=== PATIENT | female | born 1985 | race Caucasian/White ===

== ENCOUNTER 2018-01-20 13:01 | Emergency (ER) | payer SELFPAY ==
[2018-01-20 13:17] VITALS: RESP 18; TEMP 98.4; O2SAT 100
--- NOTE | 2018-01-20 13:44 | ED PDOC ---
Arrival/HPI - General Chief Complaint: Female Genitourinary Time Seen by Provider: 01/20/18 13:20 Historian: Patient - History of Present Illness Narrative History of Present Illness (Text): 01/20/18 13:42 32 year old female, with no significant past medical history, who presents to the emergency department complaining of vaginal bleeding with (). Patient notes experiencing spotting last night and this morning, along with little blood clots this morning. Patient states associated gassy feeling in the lower abdominal area, vaginal discharge, and frequent urination. Patient denies any fever, chills, chest pain, shortness of breath, nausea, vomiting, diarrhea, back pain, neck pain, headache, dizziness, or any other complaints. PMD: pending medicaid Time/Duration: 24 hours Symptom Onset: Gradual Symptom Course: Unchanged Activities at Onset: Light Past Medical History - Provider Review Nursing Documentation Reviewed: Yes - Infectious Disease Hx of Infectious Diseases: None - Reproductive Menopause: No - Psychiatric Hx Substance Use: No - Anesthesia Hx Anesthesia: No Family/Social History - Physician Review Nursing Documentation Reviewed: Yes Family/Social History: Unknown Family HX Smoking Status: Unknown If Ever Smoked Hx Alcohol Use: No Hx Substance Use: No Allergies/Home Meds Allergies/Adverse Reactions: Allergies No Known Allergies Allergy (Verified 01/20/18 13:17) Review of Systems - Physician Review All systems were reviewed & negative as marked: Yes - Review of Systems Constitutional: Normal Eyes: Normal ENT: Normal Respiratory: Normal. absent: SOB, Cough Cardiovascular: Normal. absent: Chest Pain Gastrointestinal: Abdominal Pain (lower abdominal discomfort) Genitourinary Female: Frequency, Vaginal Bleeding, Vaginal Discharge. absent: Dysuria, Hematuria Musculoskeletal: Normal. absent: Back Pain, Neck Pain Skin: Normal Neurological: Normal. absent: Headache, Dizziness Endocrine: Normal Hemo/Lymphatic: Normal Psychiatric: Normal Physical Exam Vital Signs Reviewed: Yes Vital Signs Temp Pulse Resp BP Pulse Ox 01/20/18 13:13 98.4 F 78 18 111/69 100 Temperature: Afebrile Blood Pressure: Normal Pulse: Regular Respiratory Rate: Normal Appearance: Positive for: Well-Appearing, Non-Toxic, Comfortable Pain Distress: None Mental Status: Positive for: Alert and Oriented X 3 - Systems Exam Head: Present: Atraumatic, Normocephalic Pupils: Present: PERRL Extroacular Muscles: Present: EOMI Conjunctiva: Present: Normal Mouth: Present: Moist Mucous Membranes Neck: Present: Normal Range of Motion Respiratory/Chest: Present: Clear to Auscultation, Good Air Exchange. No: Respiratory Distress, Accessory Muscle Use Cardiovascular: Present: Regular Rate and Rhythm, Normal S1, S2. No: Murmurs Abdomen: Present: Tenderness (lower abdominal tenderness), Normal Bowel Sounds. No: Distention, Peritoneal Signs Genitourinary/Pelvic Exam: Present: Normal External Genitalia, Vaginal Bleeding (+mild bleeding; no clots), Cervical os Closed, Other (Assembler Bicycle Tone). No: Vaginal Discharge, Vaginal Lesions, Adenexal Tenderness, Adenexal Mass, Cervical Motion Tendernes, Odor Back: Present: Normal Inspection Upper Extremity: Present: Normal Inspection. No: Cyanosis, Edema Lower Extremity: Present: Normal Inspection. No: Edema Neurological: Present: GCS=15, CN II-XII Intact, Speech Normal Skin: Present: Warm, Dry, Normal Color. No: Rashes Psychiatric: Present: Alert, Oriented x 3, Normal Insight, Normal Concentration Medical Decision Making ED Course and Treatment: 01/20/18 14:00 Impression: 32 year old female presents to the Emergency department complaining of vaginal bleeding x 2 days. Differential Diagnosis included but are not limited to: R/o ectopic vs. R/o miscarriage Plan: -- Labs -- POC Urinary Test -- US Transvaginal -- Urinalysis -- Reassess and disposition Progress Notes: 01/20/18 16:05 US Transvaginal reviewed, shows: IMPRESSION: Findings could represent either early or demise. See comment. Follow-up and correlation with beta HCG levels is recommended 01/20/18 17:41 I explained to patient in detail her results from her ultrasound. I told her to make sure she returns to the ED in 2 days fore repeat bHCG. If she experiences pain, worsening bleeding or any other concern she was advised to return to the ED. She will make sure to also make arrangements to follow up with her CAR RESTORER or Dr. Wan which I explained was one of our OBGYN director of infection control. - Scribe Statement The provider has reviewed the documentation as recorded by the Broderickiberyn Child All medical record entries made by the Scriberyn were at my direction and personally dictated by me. I have reviewed the chart and agree that the record accurately reflects my personal performance of the history, physical exam, medical decision making, and the department course for this patient. I have also personally directed, reviewed, and agree with the discharge instructions and disposition. Disposition/Present on Arrival - Present on Arrival Any Indicators Present on Arrival: No History of DVT/PE: No History of Uncontrolled Diabetes: No Urinary Catheter: No History of Decub. Ulcer: No History Surgical Site Infection Following: None - Disposition Have Diagnosis and Disposition been Completed?: Yes Diagnosis: Threatened Disposition: HOME/ ROUTINE Disposition Time: 17:00 Patient Plan: Discharge Condition: IMPROVED Discharge Instructions (ExitCare): Threatened Miscarriage Additional Instructions: NAZ PENA, thank you for letting us take care of you today. Your provider was Murray Dumont DO and you were treated for Threatened . The emergency medical care you received today was directed at your acute symptoms. If you were prescribed any medication, please fill it and take as directed. It may take several days for your symptoms to resolve. Return to the Emergency Department if your symptoms worsen, do not improve, or if you have any other problems. RETURN TO THE ED IN 2 DAYS FOR REPEAT BHCG AND REEVALUATION. FOLLOW-UP WITH OBGYN IN 1-2DAYS. Please contact your doctor or call one of the physicians/clinics you have been referred to that are listed on the Patient Visit Information form that is included in your discharge packet. Bring any paperwork you were given at discharge with you along with any medications you are taking to your follow up visit. Our treatment cannot replace ongoing medical care by a primary care provider outside of the emergency department. Thank you for allowing the [facility] team to be part of your care today. If you had an X-Ray or CT scan: A Radiologist will review the ED reading if any change in treatment is needed we will contact you. If you had a blood, urine, or wound culture: It will take several days for the results, if any change in treatment is needed we will contact you. If you had an STI test: It will take 48 hours for the results. Please call after 1 week if you have not heard back. Prescriptions: Acetaminophen [Tylenol Extra Strength] 500 mg PO Q4 #30 tablet Vit No.129/Iron/Folic [ One Daily Tablet] 1 each PO DAILY #30 tablet Referrals: Carmelo Wan MD [Staff Provider] - Follow up with primary Forms: [employer] [facility] (Bulgarian), WORK NOTE
[2018-01-20 14:19] LABS: BASO # 0.04 K/mm3 (0.0-2.0); BASO % 0.7 % (0.0-3.0); EOS # 0.1 (0.0-0.7); EOS % 1.4 % (1.5-5.0); GRAN % 67.6 % (50.0-68.0); HEMOGLOBIN 12.2 g/dL (12.0-16.0); LYMPH # 1.5 (1.2-3.4); LYMPH % 24.5 % (22.0-35.0); MEAN CORPUSCULAR HEMOGLOBIN 29.3 pg (25.0-35.0); MEAN CORPUSCULAR HGB CONC 33.2 g/dl (31.0-37.0); MEAN PLATELET VOLUME 8.6 fl (7.0-11.0); MONO # 0.3 (0.1-0.6); MONO % 5.8 % (1.0-6.0); RBC 4.17 10^6/uL (3.5-6.1); RED CELL DISTRIBUTION WIDTH 12.8 % (11.5-14.5); WHITE BLOOD COUNT 5.9 10^3/ul (4.5-11.0)
[2018-01-20 14:22] LABS: PH,URINE 6.5 (4.7-8.0); URINE BILIRUBIN NEGATIVE (NEGATIVE); URINE BLOOD LARGE (NEGATIVE); URINE GLUCOSE (UA) NEGATIVE (NEGATIVE); URINE LEUKOCYTE ESTERASE SMALL Leu/uL (NEGATIVE); URINE PROTEIN NEGATIVE mg/dL (<30 mg/dL); URINE UROBILINOGEN 0.2 E.U./dL (<1 E.U./dL)
[2018-01-20 14:23] LABS: URINE APPEARANCE SL CLOUDY (CLEAR); URINE COLOR YELLOW (YELLOW)
[2018-01-20 14:30] LABS: URINE RBC 20 - 25 /hpf (0-2)
[2018-01-20 14:31] LABS: URINE BACTERIA MANY (NEG)
[2018-01-20 14:37] LABS: INR 1.15; PROTHROMBIN TIME 13.1 SECONDS (9.4-12.5)
[2018-01-20 14:55] LABS: BLOOD UREA NITROGEN 7 mg/dL (7-21); GFR NON-AFRICAN AMERICAN > 60
[2018-01-20 14:56] LABS: ALB/GLOB RATIO 1.3 (1.1-1.8); ALBUMIN 4.3 g/dL (3.0-4.8); CALCIUM 9.5 mg/dL (8.4-10.5)
[2018-01-20 14:58] LABS: ALT/SGPT 15 U/L (7-56); AST/SGOT 16 U/L (14-36)
--- NOTE | 2018-01-20 16:03 | US ---
Date of service: 01/20/2018 PROCEDURE: OB Pelvic Ultrasound HISTORY: vag bleed in preg r/o ectopic r/o miscarriage LMP: COMPARISON: None available. FINDINGS: UTERUS: There is a gestational sac in the endometrial canal that corresponds to a age of 5 weeks 2 days. The pole corresponds to an age of 6 weeks. There is no heart activity. Findings could represent either early or demise. Follow-up and correlation with beta HCG levels is recommended Uterus measures 6.57 x 4.56 x 4.50 cm. Normal in size and appearance. CERVIX: Measures 3.19 cm. Long and closed. No cervical abnormality seen. RIGHT OVARY: Measures 2.98 x 2.38 x 2.32 cm. No mass lesion. Normal flow. LEFT OVARY: Measures 2.30 x 1.73 x 1.38 cm. No solid mass. Normal flow. FREE FLUID: None. OTHER FINDINGS: None. IMPRESSION: Findings could represent either early or demise. See comment. Follow-up and correlation with beta HCG levels is recommended
[2018-01-20 17:07] VITALS: BP 114/59; PULSE 74
== END 2018-01-20 17:41 | disposition home or self-care (01) ==
LOC: ED 13:01
DX: O20.0 Threatened abortion (principal); Z3A.00 Weeks of gestation of pregnancy not specified

== ENCOUNTER 2018-01-22 11:10 | Emergency (ER) | payer MEDICAID, OTHER ==
--- NOTE | 2018-01-22 11:16 | ED PDOC ---
Arrival/HPI - General Time Seen by Provider: 01/22/18 11:13 Historian: Patient - History of Present Illness Narrative History of Present Illness (Text): 01/22/18 11:16 32 y/o female, no pmh, nkda, LMP 11/18/2017, , seen in the ER about 2 days ago for vaginal spotting with with sonogram show early vs. demise, told to come to the ER for repeat beta hcg. Pt. stated that her vaginal spotting is slowing down, passing clots, no pelvic/abdominal/lower back pain, no fever or chills, no night sweat, no dizziness, no change in vision, no fatigue, no rash, no other medical or psychological complaints. Past Medical History - Provider Review Nursing Documentation Reviewed: Yes - Infectious Disease Hx of Infectious Diseases: None - Psychiatric Hx Substance Use: No - Anesthesia Hx Anesthesia: No Family/Social History - Physician Review Nursing Documentation Reviewed: Yes Family/Social History: Unknown Family HX Smoking Status: Unknown If Ever Smoked Hx Alcohol Use: No Hx Substance Use: No Allergies/Home Meds Allergies/Adverse Reactions: Allergies No Known Allergies Allergy (Verified 01/20/18 13:17) Review of Systems - Review of Systems Constitutional: absent: Fatigue, Fevers Eyes: absent: Vision Changes ENT: absent: Hearing Changes Respiratory: absent: SOB, Cough Cardiovascular: absent: Chest Pain Gastrointestinal: absent: Abdominal Pain, Diarrhea, Nausea, Vomiting Genitourinary Female: Vaginal Bleeding. absent: Urine Output Changes, Vaginal Discharge Musculoskeletal: absent: Arthralgias, Back Pain Skin: absent: Rash, Pruritis Neurological: absent: Headache, Dizziness Psychiatric: absent: Anxiety, Depression Physical Exam Vital Signs Reviewed: Yes Temperature: Afebrile Blood Pressure: Normal Pulse: Regular Respiratory Rate: Normal Appearance: Positive for: Well-Appearing, Non-Toxic, Comfortable Pain Distress: None Mental Status: Positive for: Alert and Oriented X 3 - Systems Exam Head: Present: Atraumatic, Normocephalic Pupils: Present: PERRL Extroacular Muscles: Present: EOMI Conjunctiva: Present: Normal Mouth: Present: Moist Mucous Membranes Neck: Present: Normal Range of Motion Respiratory/Chest: Present: Clear to Auscultation, Good Air Exchange. No: Respiratory Distress, Accessory Muscle Use Cardiovascular: Present: Regular Rate and Rhythm, Normal S1, S2. No: Murmurs Abdomen: No: Tenderness, Distention, Peritoneal Signs, Rebound, Guarding Genitourinary/Pelvic Exam: Present: Other (Pt. declined. ) Back: Present: Normal Inspection. No: CVA Tenderness, Midline Tenderness Upper Extremity: Present: Normal Inspection. No: Cyanosis, Edema Lower Extremity: Present: Normal Inspection. No: Edema Neurological: Present: GCS=15, CN II-XII Intact, Speech Normal, Motor Func Grossly Intact, Gait Normal, Memory Normal Skin: Present: Warm, Dry, Normal Color. No: Rashes Psychiatric: Present: Alert, Oriented x 3, Normal Insight, Normal Concentration Medical Decision Making ED Course and Treatment: 01/22/18 11:50 -labs -type and screen -UA -Observe and reassess 01/22/18 13:55 -Labs are nonsignificant with no elevation of wbc and stable hgb -Beta hcg 1450 from 7006 -UA show +UTI, pt. stated that she didn't receive the oral antibiotic last time -Blood type is B+ -All labs/radiology results explained to the patient, offer pelvic exam but she refused, explained to repeat betahcg in 2 days for continuous trending. -Discharge home with keflex, bed rest, stay hydrated, follow up with your own pmd and obgyn for repeat betahcg and trending in 2 days, return to the ER for any new or worsening signs or symptoms. - PA / ETL ANALYST DEVELOPER / Resident Statement / has reviewed & agrees with the documentation as recorded. Disposition/Present on Arrival - Present on Arrival Any Indicators Present on Arrival: No History of DVT/PE: No History of Uncontrolled Diabetes: No Urinary Catheter: No History of Decub. Ulcer: No History Surgical Site Infection Following: None - Disposition Have Diagnosis and Disposition been Completed?: Yes Diagnosis: , Vaginal spotting, UTI (urinary tract infection) Disposition: HOME/ ROUTINE Disposition Time: 13:57 Patient Plan: Discharge Condition: GOOD Additional Instructions: -Discharge home with keflex, bed rest, stay hydrated, follow up with your own pmd and obgyn for repeat betahcg and trending in 2 days, return to the ER for any new or worsening signs or symptoms. Prescriptions: Cephalexin [cephalexin] 500 mg PO TID #21 cap Referrals: PCP,NO [Primary Care Provider] - Follow up with primary Supriya Rich MD [Staff Provider] - Follow up with primary Forms: WORK NOTE
[2018-01-22 11:43] VITALS: TEMP 99.3; O2SAT 99
[2018-01-22 13:04] LABS: BASO # 0.06 K/mm3 (0.0-2.0); BASO % 1.1 % (0.0-3.0); EOS # 0.1 (0.0-0.7); EOS % 2.3 % (1.5-5.0); GRAN # 3.22 (1.4-6.5); GRAN % 56.6 % (50.0-68.0); HEMOGLOBIN 12.5 g/dL (12.0-16.0); LYMPH # 1.8 (1.2-3.4); LYMPH % 31.6 % (22.0-35.0); MEAN CELL VOLUME 87.6 fl (80.0-105.0); MEAN CORPUSCULAR HEMOGLOBIN 29.3 pg (25.0-35.0); MEAN CORPUSCULAR HGB CONC 33.4 g/dl (31.0-37.0); MEAN PLATELET VOLUME 8.8 fl (7.0-11.0); MONO # 0.5 (0.1-0.6); MONO % 8.4 % (1.0-6.0); RBC 4.27 10^6/uL (3.5-6.1); RED CELL DISTRIBUTION WIDTH 12.8 % (11.5-14.5); WHITE BLOOD COUNT 5.7 10^3/ul (4.5-11.0)
[2018-01-22 13:20] LABS: ALB/GLOB RATIO 1.3 (1.1-1.8); ALBUMIN 4.6 g/dL (3.0-4.8); ALT/SGPT 11 U/L (7-56); AST/SGOT 17 U/L (14-36); BLOOD UREA NITROGEN 11 mg/dL (7-21); CALCIUM 9.9 mg/dL (8.4-10.5); GFR NON-AFRICAN AMERICAN > 60
[2018-01-22 13:24] LABS: PH,URINE 6.5 (4.7-8.0); URINE BILIRUBIN NEGATIVE (NEGATIVE); URINE BLOOD LARGE (NEGATIVE); URINE COLOR LIGHT YELLOW (YELLOW); URINE GLUCOSE (UA) NEGATIVE (NEGATIVE); URINE LEUKOCYTE ESTERASE MODERATE Leu/uL (NEGATIVE); URINE PROTEIN 100 mg/dL (<30 mg/dL); URINE UROBILINOGEN 0.2 E.U./dL (<1 E.U./dL)
[2018-01-22 13:25] LABS: URINE APPEARANCE CLOUDY (CLEAR)
[2018-01-22 13:26] LABS: URINE BACTERIA MANY (NEG); URINE RBC TNTC /hpf (0-2); URINE WBC TNTC /hpf (0-6)
[2018-01-22 14:20] VITALS: BP 111/46; PULSE 77; RESP 16
== END 2018-01-22 14:19 | disposition home or self-care (01) ==
LOC: ED 11:10
DX: O23.40 Unspecified infection of urinary tract in pregnancy, unspecified trimester (principal); O26.859 Spotting complicating pregnancy, unspecified trimester; Z3A.00 Weeks of gestation of pregnancy not specified

== ENCOUNTER 2018-05-19 19:47 | Observation (INO) | payer MEDICAID ==
[2018-05-19 20:02] VITALS: BMI 21.6
[2018-05-19] MEDS ORDERED: Sodium Chloride 0.9% 1,000 ML IV STA (20:16)
[2018-05-19 20:53] LABS: URINE BILIRUBIN NEGATIVE (NEGATIVE); URINE BLOOD MODERATE (NEGATIVE); URINE GLUCOSE (UA) NEGATIVE (NEGATIVE); URINE LEUKOCYTE ESTERASE NEGATIVE Leu/uL (NEGATIVE); URINE PROTEIN NEGATIVE mg/dL (<30 mg/dL); URINE UROBILINOGEN 0.2 E.U./dL (<1 E.U./dL)
[2018-05-19 20:55] LABS: BASO # 0.03 K/mm3 (0.0-2.0); BASO % 0.3 % (0.0-3.0); EOS # 0.1 (0.0-0.7); EOS % 0.7 % (1.5-5.0); HEMOGLOBIN 11.9 g/dL (12.0-16.0); LYMPH % 22.2 % (22.0-35.0); MEAN CELL VOLUME 89.5 fl (80.0-105.0); MEAN CORPUSCULAR HEMOGLOBIN 29.1 pg (25.0-35.0); MEAN CORPUSCULAR HGB CONC 32.5 g/dl (31.0-37.0); MEAN PLATELET VOLUME 9.1 fl (7.0-11.0); MONO # 0.5 (0.1-0.6); MONO % 5.8 % (1.0-6.0); RBC 4.09 10^6/uL (3.5-6.1); RED CELL DISTRIBUTION WIDTH 12.6 % (11.5-14.5); URINE APPEARANCE SL CLOUDY (CLEAR); URINE COLOR YELLOW (YELLOW); WHITE BLOOD COUNT 8.8 10^3/uL (4.5-11.0)
[2018-05-19 20:57] LABS: INR 1.22; PARTIAL THROMBOPLASTIN TIME 29.6 Seconds (26.9-38.3); PROTHROMBIN TIME 13.5 SECONDS (9.4-12.5)
[2018-05-19 20:58] LABS: ALB/GLOB RATIO 1.3 (1.1-1.8); ALBUMIN 4.5 g/dL (3.0-4.8); ALT/SGPT 27 U/L (7-56); AST/SGOT 20 U/L (14-36); BLOOD UREA NITROGEN 10 mg/dL (7-21); CALCIUM 9.4 mg/dL (8.4-10.5); GFR NON-AFRICAN AMERICAN > 60; LIPASE 79 U/L (23-300)
[2018-05-19 21:10] LABS: URINE BACTERIA FEW /hpf
--- NOTE | 2018-05-19 22:40 | ED PDOC ---
Arrival/HPI - General Chief Complaint: Abdominal Pain Time Seen by Provider: 05/19/18 20:06 Historian: Patient - History of Present Illness Narrative History of Present Illness (Text): 05/19/18 22:57 32yo female with no pmhx who present with complaint of burning epigastric and lower abdominal pain with associated nausea and diarrhea since this morning. States pain became worse this evening. States she tried to induce vomiting, but couldn't. Denies fever, chills, melena, hematemesis, urinary symptoms, chest pain, sick contact, any other complaint. Past Medical History - Provider Review Nursing Documentation Reviewed: Yes - Infectious Disease Hx of Infectious Diseases: None - Reproductive Currently : No - Psychiatric Hx Substance Use: No - Anesthesia Hx Anesthesia: No Family/Social History - Physician Review Nursing Documentation Reviewed: Yes Family/Social History: Unknown Family HX Smoking Status: Never Smoked Hx Alcohol Use: No Hx Substance Use: No Allergies/Home Meds Allergies/Adverse Reactions: Allergies No Known Allergies Allergy (Verified 01/20/18 13:17) Home Medications: Home Meds Medication Instructions Recorded Confirmed RX: No Known Home Med 05/19/18 05/19/18 Review of Systems - Physician Review All systems were reviewed & negative as marked: Yes - Review of Systems Constitutional: Normal Eyes: Normal ENT: Normal Respiratory: Normal Cardiovascular: Normal Gastrointestinal: Abdominal Pain, Diarrhea, Nausea. absent: Constipation, Vomiting, Hematochezia, Hematemesis Genitourinary Female: Normal Musculoskeletal: Normal Skin: Normal Neurological: Normal Endocrine: Normal Hemo/Lymphatic: Normal Psychiatric: Normal Physical Exam Vital Signs Reviewed: Yes Vital Signs Temp Pulse Resp BP Pulse Ox 05/19/18 21:42 98.1 F 92 H 18 120/74 100 05/19/18 20:05 98 F 85 20 117/78 100 Temperature: Afebrile Blood Pressure: Normal Pulse: Regular Respiratory Rate: Normal Appearance: Positive for: Well-Appearing, Non-Toxic, Comfortable Pain Distress: Moderate Mental Status: Positive for: Alert and Oriented X 3 - Systems Exam Head: Present: Atraumatic, Normocephalic Pupils: Present: PERRL Extroacular Muscles: Present: EOMI Conjunctiva: Present: Normal Mouth: Present: Moist Mucous Membranes Neck: Present: Normal Range of Motion Respiratory/Chest: Present: Clear to Auscultation, Good Air Exchange. No: Respiratory Distress, Accessory Muscle Use Cardiovascular: Present: Regular Rate and Rhythm, Normal S1, S2. No: Murmurs Abdomen: Present: Tenderness (Epigastric and lower abdomen), Normal Bowel Sounds, Other (Soft). No: Distention, Peritoneal Signs, Rebound, Guarding, McBurney's Point Tender, Rovsing's Sign Present Back: Present: Normal Inspection Upper Extremity: Present: Normal Inspection. No: Cyanosis, Edema Lower Extremity: Present: Normal Inspection. No: Edema Neurological: Present: GCS=15, CN II-XII Intact, Speech Normal Skin: Present: Warm, Dry, Normal Color. No: Rashes Psychiatric: Present: Alert, Oriented x 3, Normal Insight, Normal Concentration Medical Decision Making ED Course and Treatment: 05/19/18 22:40 PT present to ED for stated history. She was in moderate pain on presentation and noted to vomit while in ED. Labs UA Abdominal/pelvic CT Toradol/Pepcid/Zofran/1L NS On re evaluation she noted that her pain improved Abdominal/Pelvic CT IMPRESSION: 1. There is an abnormal appendix in the right lower quadrant which is fluid- filled and demonstrates wall thickening and measures at least 1.2 cm in diameter and contains an appendicolith. There is minimal periappendiceal stranding. The finding is compatible with acute appendicitis. No convincing evidence for perforation or abscess. 2. There is a 3.1 cm cystic lesion of the right adnexa. This may represent simple cyst. However, if indicated, this could be further evaluated with pelvic sonogram. 3. Additional and incidental findings as described. Please see comments. 4. Result are being phoned into the referring clinicians at the time of this dictation. Electronically signed on May 19, 2018 10:39:40 PM EST by: Jeromy Porras M.D., REJI Certified By [facility] & [facility] Fellowship Trained MRI and CT Specialist 05/19/18 23:[address] finding, pt was admitted for acute appendicitis Result and plan was DW the pt and she agreed Case was DW Dr. Cool and pt was admitted Case was also DW the enrollment services vice president, Yohan Currie - Lab Interpretations Lab Results: PT 13.5 SECONDS (9.4-12.5) H 05/19/18 20:43 INR 1.22 05/19/18 20:43 APTT 29.6 Seconds (26.9-38.3) 05/19/18 20:43 Total Bilirubin 0.6 mg/dL (0.2-1.3) 05/19/18 20:43 AST 20 U/L (14-36) 05/19/18 20:43 ALT 27 U/L (7-56) 05/19/18 20:43 Alkaline Phosphatase 53 U/L (38-126) 05/19/18 20:43 Total Protein 8.0 g/dL (5.8-8.3) 05/19/18 20:43 Albumin 4.5 g/dL (3.0-4.8) 05/19/18 20:43 Globulin 3.5 gm/dL 05/19/18 20:43 Albumin/Globulin Ratio 1.3 (1.1-1.8) 05/19/18 20:43 Lipase 79 U/L (23-300) 05/19/18 20:43 Urine Color Yellow (YELLOW) 05/19/18 20:43 Urine Appearance Sl cloudy (CLEAR) 05/19/18 20:43 Urine pH 6.0 (4.7-8.0) 05/19/18 20:43 Ur Specific Howell >= 1.030 (1.005-1.035) 05/19/18 20:43 Urine Protein Negative mg/dL (<30 mg/dL) 05/19/18 20:43 Urine Glucose (UA) Negative mg/dL (NEGATIVE) 05/19/18 20:43 Urine Ketones Trace mg/dL (NEGATIVE) H 05/19/18 20:43 Urine Blood Moderate (NEGATIVE) H 05/19/18 20:43 Urine Nitrate Negative (NEGATIVE) 05/19/18 20:43 Urine Bilirubin Negative (NEGATIVE) 05/19/18 20:43 Urine Urobilinogen 0.2 E.U./dL (<1 E.U./dL) 05/19/18 20:43 Ur Leukocyte Esterase Negative Saritha/uL (NEGATIVE) 05/19/18 20:43 Urine RBC 5 - 10 /hpf (0-2) H 05/19/18 20:43 Urine WBC 5 - 10 /hpf (0-6) H 05/19/18 20:43 Ur Epithelial Cells 3 - 4 /hpf (0-5) 05/19/18 20:43 Urine Bacteria Few /hpf (NONE) 05/19/18 20:43 - RAD Interpretation Radiology Orders: 05/19/18 20:56 ABD & PELVIS W/O PO OR IV CONT [CT] Stat - Medication Orders Current Medication Orders: Discontinued Medications Famotidine (Pepcid) 20 mg IVP STAT STA Stop: 05/19/18 20:17 Last Admin: 05/19/18 21:08 Dose: 20 mg IVP Administration Document 05/19/18 21:08 DM (Rec: 05/19/18 21:09 DM [id number]) Charges for Administration # of IVP Administrations 1 Sodium Chloride (Sodium Chloride 0.9%) 1,000 mls @ 1,000 mls/hr IV .Q1H STA Stop: 05/19/18 21:15 Last Admin: 05/19/18 20:58 Dose: 1,000 mls/hr eMAR Start Stop Document 05/19/18 20:58 DM (Rec: 05/19/18 21:00 DM [id number]) Intravenous Solution Start Date 05/19/18 Start Time 20:15 End Date 05/19/18 End time 21:20 Total Infusion Time 65 Ketorolac Tromethamine (Toradol) 30 mg IVP STAT STA Stop: 05/19/18 20:58 Last Admin: 05/19/18 21:07 Dose: 30 mg MAR Pain Assessment Document 05/19/18 21:07 DM (Rec: 05/19/18 21:07 DM [id number]) Pain Reassessment Is this a pain reassessment? Yes Presence of Pain Presence of Pain Yes Pain Scale Used Protocol: PSCALES Pain Scale Used Numeric Location Pain Location Body Site Abdomen Description Intensity of Pain at present 8 IVP Administration Document 05/19/18 21:07 DM (Rec: 05/19/18 21:07 DM [id number]) Charges for Administration # of IVP Administrations 1 Ondansetron HCl (Zofran Inj) 4 mg IVP STAT STA Stop: 05/19/18 20:17 Last Admin: 05/19/18 21:05 Dose: 4 mg IVP Administration Document 05/19/18 21:05 DM (Rec: 05/19/18 21:05 DM [id number]) Charges for Administration # of IVP Administrations 1 Ondansetron HCl (Zofran Inj) 4 mg IVP STAT STA Stop: 05/19/18 21:09 Last Admin: 05/19/18 21:20 Dose: 4 mg IVP Administration Document 05/19/18 21:20 DM (Rec: 05/19/18 21:20 DM [id number]) Charges for Administration # of IVP Administrations 1 Disposition/Present on Arrival - Present on Arrival Any Indicators Present on Arrival: No History of DVT/PE: No History of Uncontrolled Diabetes: No Urinary Catheter: No History of Decub. Ulcer: No History Surgical Site Infection Following: None - Disposition Have Diagnosis and Disposition been Completed?: Yes Diagnosis: Acute appendicitis Disposition: HOSPITALIZED Disposition Time: 22:30 Patient Plan: Admission Patient Problems: Current Active Problems Problem Status Onset Acute appendicitis Acute Condition: FAIR
--- NOTE | 2018-05-20 00:17 | CP.PCM.HP ---
<José Miguel Hitchcock - Last Filed: 05/20/18 02:14> History of Present Illness - History of Present Illness History of Present Illness: Medicine History and Physical for Hospitalist Service, Dr. Bony Hitchcock, DO PGY-1 This is a 32 y o female with no remarkable PMhx who presents to the ED c/o burning epigastric and lower abd pain with associated nausea and diarrhea present since this am. States she was having gas pain, belching, and tried to induce vomiting to relieve her symptoms but was unable to. States she also had 2 episodes of loose stool, non-watery, non-bloody, earlier today prior to symptom onset. Denies hx sick contacts or recent URI/flu-like illness. States her pain was sharp, improved with changing position from sitting up to lying down, rated it 10/10 at time of presentation. States the pain started on her R side, then migrated to her epigastric area, then migrated down to the periumbilical area and mid-lower abd. Denies fever or chills. Denies constipation, diarrhea, chest pain, sob, urinary complaints, low back pain, or other symptoms. Reports last PO intake was at 7:00 pm. PMhx: none PSurgHx: none PGynHx: positive for spontaneous miscarriage at 7 weeks gestation several mos prior Allergies: NKDA Home meds: none Fam hx: negative for cardiac disease or malignancies Soc hx: denies smoking, EtOH or illicit drug use; denies hx of STDs, LMP 05/08/18 PMD: Dr. Stover ([place]) Present on Admission - Present on Admission Any Indicators Present on Admission: No History of DVT/PE: No History of Uncontrolled Diabetes: No Urinary Catheter: No Decubitus Ulcer Present: No Review of Systems - Constitutional Constitutional: absent: Chills, Fever - Cardiovascular Cardiovascular: absent: Chest Pain, Dyspnea on Exertion - Respiratory Respiratory: absent: Cough, Dyspnea, Wheezing - Gastrointestinal Gastrointestinal: Abdominal Pain, Diarrhea, Nausea. absent: Constipation, Vomiting - Genitourinary Genitourinary: absent: Change in Urinary Stream, Difficulty Urinating, Urinary Frequency Past Patient History - Infectious Disease Hx of Infectious Diseases: None - Past Social History Smoking Status: Never Smoked - PSYCHIATRIC Hx Substance Use: No - SURGICAL HISTORY Hx Surgeries: No - ANESTHESIA Hx Anesthesia: No Meds Allergies/Adverse Reactions: Allergies Allergy/AdvReac Type Severity Reaction Status Date / Time No Known Allergies Allergy Verified 01/20/18 13:17 Physical Exam - Constitutional Appears: Non-toxic, No Acute Distress - Head Exam Head Exam: ATRAUMATIC, NORMOCEPHALIC - Eye Exam Eye Exam: EOMI, Normal appearance, PERRL - ENT Exam ENT Exam: Mucous Membranes Moist - Respiratory Exam Respiratory Exam: Clear to Auscultation Bilateral, NORMAL BREATHING PATTERN. absent: Rales, Rhonchi, Wheezes - Cardiovascular Exam Cardiovascular Exam: REGULAR RHYTHM, +S1, +S2. absent: Gallop, Rubs, Systolic Murmur - GI/Abdominal Exam GI & Abdominal Exam: Guarding, Normal Bowel Sounds, Soft, Tenderness. absent: Organomegaly, Rebound Additional comments: Tenderness to palpation in RLQ and LLQ - Extremities Exam Extremities exam: Positive for: full ROM, normal capillary refill, normal inspection, pedal pulses present. Negative for: calf tenderness, pedal edema - Neurological Exam Neurological exam: Alert, CN II-XII Intact, Oriented x3 - Psychiatric Exam Psychiatric exam: Normal Affect, Normal Mood - Skin Skin Exam: Dry, Intact, Normal Color, Warm Results - Vital Signs Recent Vital Signs: Last Vital Signs Temp 98.1 F 05/19/18 21:42 Pulse 92 H 05/19/18 21:42 Resp 18 05/19/18 21:42 BP 120/74 05/19/18 21:42 Pulse Ox 100 05/19/18 21:42 - Labs Result Diagrams: 05/19/18 20:43 05/19/18 20:43 Labs: Laboratory Results - last 24 hr 05/19/18 05/19/18 05/19/18 20:43 20:43 20:43 WBC 8.8 RBC 4.09 Hgb 11.9 L Hct 36.6 MCV 89.5 MCH 29.1 MCHC 32.5 RDW 12.6 Plt Count 223 MPV 9.1 Neut % (Auto) 71.0 H Lymph % (Auto) 22.2 [place] % (Auto) 5.8 Eos % (Auto) 0.7 L Baso % (Auto) 0.3 Lymph # (Auto) 2.0 [place] # (Auto) 0.5 Eos # (Auto) 0.1 Baso # (Auto) 0.03 Absolute Neuts (auto) 6.27 PT 13.5 H INR 1.22 APTT 29.6 Sodium Potassium Chloride Carbon Dioxide Anion Gap BUN Creatinine Est GFR ( Amer) Est GFR (Non-Af Amer) Random Glucose Calcium Magnesium Total Bilirubin AST ALT Alkaline Phosphatase Total Protein Albumin Globulin Albumin/Globulin Ratio Lipase Urine Color Yellow Urine Appearance Sl cloudy Urine pH 6.0 Ur Specific [place] >= 1.030 Urine Protein Negative Urine Glucose (UA) Negative Urine Ketones Trace H Urine Blood Moderate H Urine Nitrate Negative Urine Bilirubin Negative Urine Urobilinogen 0.2 Ur Leukocyte Esterase Negative Urine RBC 5 - 10 H Urine WBC 5 - 10 H Ur Epithelial Cells 3 - 4 Urine Bacteria Few 05/19/18 20:43 WBC RBC Hgb Hct MCV MCH MCHC RDW Plt Count MPV Neut % (Auto) Lymph % (Auto) [place] % (Auto) Eos % (Auto) Baso % (Auto) Lymph # (Auto) [place] # (Auto) Eos # (Auto) Baso # (Auto) Absolute Neuts (auto) PT INR APTT Sodium 136 Potassium 3.7 Chloride 103 Carbon Dioxide 26 Anion Gap 11 BUN 10 Creatinine 0.5 L Est GFR ( Amer) > 60 Est GFR (Non-Af Amer) > 60 Random Glucose 96 Calcium 9.4 Magnesium 1.8 Total Bilirubin 0.6 AST 20 ALT 27 Alkaline Phosphatase 53 Total Protein 8.0 Albumin 4.5 Globulin 3.5 Albumin/Globulin Ratio 1.3 Lipase 79 Urine Color Urine Appearance Urine pH Ur Specific [place] Urine Protein Urine Glucose (UA) Urine Ketones Urine Blood Urine Nitrate Urine Bilirubin Urine Urobilinogen Ur Leukocyte Esterase Urine RBC Urine WBC Ur Epithelial Cells Urine Bacteria Assessment & Plan - Assessment and Plan (Free Text) Assessment: This is a 32 y o female with no remarkable PMhx who presents to the ED c/o burning epigastric and lower abd pain with associated nausea and diarrhea present since this am. Admitted for acute appendicitis. Plan: Acute appenditicitis -Admit to med/surg -Keep NPO -IVF at 100 cc/hr -General Surgery consulted (Dr. Corbett), recs appreciated -CT abd/pelvis: Abnormal appendix in RLQ fluid-filled and demonstrates wall thickening and measures at least 1.2 cm in diameter and contains an appendicoli th. Minimal periappendiceal stranding. Finding compatible w/ acute appendicitis. No convincing evidence for perforation or abscess. -Start Zosyn IVPB q6h -Zofran prn for nausea -Morphine prn for pain -No leukocytosis noted on admission, cont to trend DVT/GI ppx: SCDs/Protonix Pt seen, examined with, and plan discussed with Dr. Lovett, attending physician. José Miguel Hitchcock DO PGY-1, [employer] Pager #[phone] <Brunilda Lovett - Last Filed: 05/20/18 05:57> Results - Vital Signs Recent Vital Signs: Last Vital Signs Temp 98.1 F 05/19/18 21:42 Pulse 81 05/20/18 01:12 Resp 20 05/20/18 02:38 BP 111/66 05/20/18 01:12 Pulse Ox 100 05/20/18 01:12 - Labs Result Diagrams: 05/19/18 20:43 05/19/18 20:43 Labs: Laboratory Results - last 24 hr 05/19/18 05/19/18 05/19/18 20:43 20:43 20:43 WBC 8.8 RBC 4.09 Hgb 11.9 L Hct 36.6 MCV 89.5 MCH 29.1 MCHC 32.5 RDW 12.6 Plt Count 223 MPV 9.1 Neut % (Auto) 71.0 H Lymph % (Auto) 22.2 [place] % (Auto) 5.8 Eos % (Auto) 0.7 L Baso % (Auto) 0.3 Lymph # (Auto) 2.0 [place] # (Auto) 0.5 Eos # (Auto) 0.1 Baso # (Auto) 0.03 Absolute Neuts (auto) 6.27 PT 13.5 H INR 1.22 APTT 29.6 Sodium Potassium Chloride Carbon Dioxide Anion Gap BUN Creatinine Est GFR ( Amer) Est GFR (Non-Af Amer) Random Glucose Calcium Magnesium Total Bilirubin AST ALT Alkaline Phosphatase Total Protein Albumin Globulin Albumin/Globulin Ratio Lipase Urine Color Yellow Urine Appearance Sl cloudy Urine pH 6.0 Ur Specific [place] >= 1.030 Urine Protein Negative Urine Glucose (UA) Negative Urine Ketones Trace H Urine Blood Moderate H Urine Nitrate Negative Urine Bilirubin Negative Urine Urobilinogen 0.2 Ur Leukocyte Esterase Negative Urine RBC 5 - 10 H Urine WBC 5 - 10 H Ur Epithelial Cells 3 - 4 Urine Bacteria Few 05/19/18 20:43 WBC RBC Hgb Hct MCV MCH MCHC RDW Plt Count MPV Neut % (Auto) Lymph % (Auto) [place] % (Auto) Eos % (Auto) Baso % (Auto) Lymph # (Auto) [place] # (Auto) Eos # (Auto) Baso # (Auto) Absolute Neuts (auto) PT INR APTT Sodium 136 Potassium 3.7 Chloride 103 Carbon Dioxide 26 Anion Gap 11 BUN 10 Creatinine 0.5 L Est GFR ( Amer) > 60 Est GFR (Non-Af Amer) > 60 Random Glucose 96 Calcium 9.4 Magnesium 1.8 Total Bilirubin 0.6 AST 20 ALT 27 Alkaline Phosphatase 53 Total Protein 8.0 Albumin 4.5 Globulin 3.5 Albumin/Globulin Ratio 1.3 Lipase 79 Urine Color Urine Appearance Urine pH Ur Specific [place] Urine Protein Urine Glucose (UA) Urine Ketones Urine Blood Urine Nitrate Urine Bilirubin Urine Urobilinogen Ur Leukocyte Esterase Urine RBC Urine WBC Ur Epithelial Cells Urine Bacteria Attending/Attestation - Attestation I have personally seen and examined this patient.: Yes I have fully participated in the care of the patient.: Yes I have reviewed all pertinent clinical information: Yes Notes (Text): 05/20/18 05:56 Patient was seen when she was in [facility]-02. Medical record was reviewed. Agree with history, physical examination, assessment and plan. Gives family history of breast cancer (Cousin and her mother.)
[2018-05-20] MEDS: Morphine 2 mg/ml ISec IVP PRN ×2 (00:47→13:44)
[2018-05-20] MEDS: Dextrose 5%/0.45% NS 1,000 ML IV SCH ×3 (00:52→21:02)
[2018-05-20] MEDS: Piperacillin/Tazobact 3.375 gm 100 ML IVPB SCH ×5 (00:53→22:31)
--- NOTE | 2018-05-20 05:02 | CP.PCM.CON ---
History of Present Illness - History of Present Illness History of Present Illness: Surgery This is a 32 y o female w PMH of miscarriage in 01/2018 presents to the ED c/o abd pain with associated nausea and diarrhea. sxs started yesterday afternoon. States she was having gas pain, belching, and tried to induce vomiting to relieve her symptoms but was unable to. States she also had 2 episodes of loose stool, non-watery, non-bloody. Pain is located on low abdomen and radiates to her R back. Denies hx sick contacts or recent URI/flu-like illness. States her pain was sharp, improved with changing position from sitting up to lying down, rated it 10/10 at time of presentation. Denies fever or chills. Denies constipation, chest pain, sob, urinary complaints, low back pain, or other symptoms. Reports last PO intake was yesterday. CT shows appendicitis w appendicholith. Risk and benefit of surgery is explained in detail. Pt understood. PMhx: UTI PSurgHx: none PGynHx: positive for spontaneous miscarriage at 7 weeks gestation in 01/2018 Allergies: NKDA Home meds: none Fam hx: negative for cardiac disease or malignancies Soc hx: denies smoking, EtOH or illicit drug use; denies hx of STDs, LMP 05/08/18 PMD: Dr. Stover ([place]) Review of Systems - Review of Systems Review of Systems: See HPI Past Patient History - Infectious Disease Hx of Infectious Diseases: None - Past Social History Smoking Status: Never Smoked - GENITOURINARY/GYNECOLOGICAL Other/Comment: miscariage- 2017 - PSYCHIATRIC Hx Substance Use: No - SURGICAL HISTORY Hx Surgeries: No - ANESTHESIA Hx Anesthesia: No Meds Allergies/Adverse Reactions: Allergies Allergy/AdvReac Type Severity Reaction Status Date / Time No Known Allergies Allergy Verified 01/20/18 13:17 - Medications Medications: Current Medications Acetaminophen (Tylenol 325mg Tab) 650 mg PO Q4H PRN PRN Reason: Fever >100.4 F Hydromorphone HCl (Dilaudid) 0.5 mg IVP Q4H PRN PRN Reason: Pain, severe (8-10) Dextrose/Sodium Chloride (Dextrose 5%/0.45% Ns 1000 Ml) 1,000 mls @ 100 mls/hr IV .Q10H [facility] Last Admin: 05/20/18 00:52 Dose: 100 mls/hr Piperacillin Sod/Tazobactam Sod (Zosyn 3.375 In Ns 100ml) 100 mls @ 25 mls/hr IVPB Q6H [facility]; Protocol Stop: 05/20/18 09:44 Last Admin: 05/20/18 00:53 Dose: 25 mls/hr Piperacillin Sod/Tazobactam Sod (Zosyn 3.375 In Ns 100ml) 100 mls @ 25 mls/hr IVPB Q8 [facility]; Protocol Stop: 05/21/18 01:59 Morphine Sulfate (Morphine) 1 mg IVP Q4H PRN PRN Reason: Pain, moderate (4-7) Last Admin: 05/20/18 00:47 Dose: 1 mg Ondansetron HCl (Zofran Inj) 4 mg IVP Q4H PRN PRN Reason: Nausea/Vomiting Pantoprazole Sodium (Protonix Inj) 40 mg IVP DAILY [facility] Physical Exam - Constitutional Appears: In Acute Distress - Head Exam Head Exam: ATRAUMATIC, NORMAL INSPECTION, NORMOCEPHALIC - Eye Exam Eye Exam: EOMI, Normal appearance, PERRL Pupil Exam: NORMAL ACCOMODATION, PERRL - ENT Exam ENT Exam: Mucous Membranes Moist, Normal Exam - Neck Exam Neck exam: Positive for: Normal Inspection - Respiratory Exam Respiratory Exam: NORMAL BREATHING PATTERN - Cardiovascular Exam Cardiovascular Exam: REGULAR RHYTHM - GI/Abdominal Exam GI & Abdominal Exam: Guarding, Soft, Tenderness. absent: Distended, Firm, Hernia, Rigid Additional comments: RLQ TTP. - Exam Exam: NORMAL INSPECTION - Extremities Exam Extremities exam: Positive for: full ROM, normal inspection - Back Exam Back exam: NORMAL INSPECTION - Neurological Exam Neurological exam: Alert, CN II-XII Intact, Normal Gait, Oriented x3, Reflexes Normal - Psychiatric Exam Psychiatric exam: Normal Affect, Normal Mood - Skin Skin Exam: Dry, Intact, Normal Color, Warm Results - Vital Signs Recent Vital Signs: Last Vital Signs Temp 98.1 F 05/19/18 21:42 Pulse 81 05/20/18 01:12 Resp 20 05/20/18 02:38 BP 111/66 05/20/18 01:12 Pulse Ox 100 05/20/18 01:12 - Labs Result Diagrams: 05/19/18 20:43 05/19/18 20:43 Labs: Laboratory Results - last 24 hr 05/19/18 05/19/18 05/19/18 20:43 20:43 20:43 WBC 8.8 RBC 4.09 Hgb 11.9 L Hct 36.6 MCV 89.5 MCH 29.1 MCHC 32.5 RDW 12.6 Plt Count 223 MPV 9.1 Neut % (Auto) 71.0 H Lymph % (Auto) 22.2 [place] % (Auto) 5.8 Eos % (Auto) 0.7 L Baso % (Auto) 0.3 Lymph # (Auto) 2.0 [place] # (Auto) 0.5 Eos # (Auto) 0.1 Baso # (Auto) 0.03 Absolute Neuts (auto) 6.27 PT 13.5 H INR 1.22 APTT 29.6 Sodium Potassium Chloride Carbon Dioxide Anion Gap BUN Creatinine Est GFR ( Amer) Est GFR (Non-Af Amer) Random Glucose Calcium Magnesium Total Bilirubin AST ALT Alkaline Phosphatase Total Protein Albumin Globulin Albumin/Globulin Ratio Lipase Urine Color Yellow Urine Appearance Sl cloudy Urine pH 6.0 Ur Specific [place] >= 1.030 Urine Protein Negative Urine Glucose (UA) Negative Urine Ketones Trace H Urine Blood Moderate H Urine Nitrate Negative Urine Bilirubin Negative Urine Urobilinogen 0.2 Ur Leukocyte Esterase Negative Urine RBC 5 - 10 H Urine WBC 5 - 10 H Ur Epithelial Cells 3 - 4 Urine Bacteria Few 05/19/18 20:43 WBC RBC Hgb Hct MCV MCH MCHC RDW Plt Count MPV Neut % (Auto) Lymph % (Auto) [place] % (Auto) Eos % (Auto) Baso % (Auto) Lymph # (Auto) [place] # (Auto) Eos # (Auto) Baso # (Auto) Absolute Neuts (auto) PT INR APTT Sodium 136 Potassium 3.7 Chloride 103 Carbon Dioxide 26 Anion Gap 11 BUN 10 Creatinine 0.5 L Est GFR ( Amer) > 60 Est GFR (Non-Af Amer) > 60 Random Glucose 96 Calcium 9.4 Magnesium 1.8 Total Bilirubin 0.6 AST 20 ALT 27 Alkaline Phosphatase 53 Total Protein 8.0 Albumin 4.5 Globulin 3.5 Albumin/Globulin Ratio 1.3 Lipase 79 Urine Color Urine Appearance Urine pH Ur Specific [place] Urine Protein Urine Glucose (UA) Urine Ketones Urine Blood Urine Nitrate Urine Bilirubin Urine Urobilinogen Ur Leukocyte Esterase Urine RBC Urine WBC Ur Epithelial Cells Urine Bacteria Assessment & Plan - Assessment and Plan (Free Text) Assessment: Appendicitis with appendicholith -ABX -NPO -IVF -[place]/pain control -Likely will need appendectomy JORDIN Corbett
[2018-05-20] MEDS: HYDROmorphone 0.5 mg/0.5 ml ISec IVP PRN ×4 (05:11→20:53)
[2018-05-20] MEDS ORDERED: HYDROmorphone 0.5 mg/0.5 ml ISec IVP STA (05:50)
[2018-05-20 08:07] LABS: BASO # 0.01 K/mm3 (0.0-2.0); BASO % 0.1 % (0.0-3.0); HEMOGLOBIN 10.4 g/dL (12.0-16.0); LYMPH # 0.7 (1.2-3.4); MEAN CELL VOLUME 88.8 fl (80.0-105.0); MEAN CORPUSCULAR HEMOGLOBIN 29.1 pg (25.0-35.0); MEAN CORPUSCULAR HGB CONC 32.7 g/dl (31.0-37.0); MEAN PLATELET VOLUME 9.1 fl (7.0-11.0); MONO # 0.9 (0.1-0.6); RBC 3.58 10^6/uL (3.5-6.1); RED CELL DISTRIBUTION WIDTH 12.7 % (11.5-14.5); WHITE BLOOD COUNT 9.9 10^3/uL (4.5-11.0)
[2018-05-20 08:53] LABS: ALB/GLOB RATIO 1.2 (1.1-1.8); ALBUMIN 3.6 g/dL (3.0-4.8); ALT/SGPT 18 U/L (7-56); AST/SGOT 18 U/L (14-36); BLOOD UREA NITROGEN 8 mg/dL (7-21); CALCIUM 8.4 mg/dL (8.4-10.5); GFR NON-AFRICAN AMERICAN > 60
--- NOTE | 2018-05-20 11:45 | CT ---
Date of service: 05/19/2018 PROCEDURE: CT Abdomen and Pelvis . HISTORY: Abdominal pain COMPARISON: None. TECHNIQUE: Contiguous axial images of the abdomen and pelvis performed without oral or intravenous contrast material. Additional 2D sagittal and coronal reformats generated. Radiation dose: Total exam DLP = 346.6 mGy-cm. This CT exam was performed using one or more of the following dose reduction techniques: Automated exposure control, adjustment of the mA and/or kV according to patient size, and/or use of iterative reconstruction technique. FINDINGS: LOWER THORAX: No infiltrate effusion or basilar pneumothorax. Heart size is within range of normal. No significant pericardial effusion. LIVER: Liver is borderline enlarged measuring over 18 cm in CC dimension. No obvious hepatic mass collection or calcification. GALLBLADDER AND BILE DUCTS: The gallbladder physiologically distended. No evidence of intraluminal gallbladder calculi PANCREAS: Love limited evaluation due to the lack of oral and intravenous contrast material. Appear pancreas appears grossly unremarkable with no obvious masses collections or calcifications so far as can be determined. No significant pancreatic ductal dilatation. SPLEEN: Unremarkable. No splenomegaly. ADRENALS: Unremarkable. KIDNEYS AND URETERS: Unremarkable. No stone or hydronephrosis. BLADDER: The urinary bladder is incompletely distended which in part accounts for thick-walled appearance. Correlation with urinalysis recommended to exclude cystitis REPRODUCTIVE: 2.6 x 2.0 cm right adnexal cyst. Pelvic ultrasound follow-up could be performed for confirmation and further evaluation if necessary APPENDIX: Apparent appendicolith within the proximal appendix. The appendix is also dilated and exhibits mild wall thickening with a small amount of infiltration. Findings are consistent with acute appendicitis. BOWEL: Evaluation of the bowel is limited due to the lack of oral contrast material. The stomach is distended with air and a small amount of food debris and liquid. Visualized loops of small bowel exhibit normal contour and caliber. No evidence of acute mechanical small bowel obstruction. Large bowel appears unremarkable. PERITONEUM: Small amount of infiltration changes and possibly some fluid adjacent to the appendix consistent with this patient's history of acute appendicitis... There also small amount of of free fluid seen in the cul-de-sac. No the gross free intraperitoneal air LYMPH NODES: Unremarkable. No enlarged lymph nodes. VASCULATURE: Unremarkable. No aortic aneurysm. No aortic atherosclerotic calcification or mural plaque present. BONES: Minor multilevel degenerative spondylosis of the lower thoracic and lumbar spine. OTHER FINDINGS: None. IMPRESSION: Findings are consistent with acute appendicitis with a intraluminal appendicolith. Small right adnexal cyst for which follow-up of pelvic ultrasound could be performed for further evaluation if necessary.. There is a small amount of free fluid in the cul de sac. Borderline hepatomegaly. Concordant preliminary report provided by overnight radiology service.
[2018-05-20] MEDS ORDERED: Propofol 10 mg/ml Inj (20 ML) ONE (16:10)
[2018-05-20] MEDS ORDERED: Midazolam 2 MG/2 ML VIAL ONE (16:10)
[2018-05-20] MEDS ORDERED: Glycopyrrolate 0.2 mg/ml (2ml vial) ONE (16:10)
[2018-05-20] MEDS ORDERED: Lidocaine 1% Inj (20ml) ONE (16:11)
[2018-05-20] MEDS ORDERED: Succinylcholine 200 mg/10 ml Inj IV ONE (16:11)
[2018-05-20] MEDS ORDERED: Rocuronium 10 mg/ml (5 ml) ONE (16:11)
[2018-05-20] MEDS ORDERED: Neostigmine Methylsulfate 3mg/3ml Syringe IV ONE (16:14)
[2018-05-20] MEDS ORDERED: Bupivacaine 0.5% Inj(30mL) IJ ONE (17:23)
[2018-05-20] MEDS ORDERED: Oxycodone/Acetaminophen 5/325 mg Tab PO PRN (18:00)
[2018-05-20] MEDS ORDERED: HYDROmorphone 0.5 mg/0.5 ml ISec IVP PRN (18:01)
--- NOTE | 2018-05-20 18:03 | PCM.SURG1 ---
Surgeon's Initial Post Op Note - Surgeon's Notes Surgeon: Dr. Corbett Classifier Operator: Dr. Gongora PGY3 Type of Anesthesia: General Endo Anesthesia Administered By: Dr. Sotelo Pre-Operative Diagnosis: Acute appendicitis Operative Findings: See operative dictation Post-Operative Diagnosis: Acute Gangrenous Appendicitis Operation Performed: Laparoscopic Appendectomy Specimen/Specimens Removed: Appendix Estimated Blood Loss: EBL {In ML}: 5 Drains Used: No Drains Post-Op Condition: Good Date of Surgery/Procedure: 05/20/18 Time of Surgery/Procedure: 18:03
[2018-05-20] MEDS ORDERED: Lactated Ringer's 1,000 ML IV SCH (18:15)
[2018-05-21] MEDS: HYDROmorphone 0.5 mg/0.5 ml ISec IVP PRN ×2 (00:44→05:02)
[2018-05-21] MEDS: metroNIDAZOLE IV 500 mg/100 ml 500 MG/100 ML BAG IVPB SCH ×3 (04:56→14:01)
[2018-05-21] MEDS: Dextrose 5%/0.45% NS 1,000 ML IV SCH (04:57)
[2018-05-21 07:25] LABS: BASO # 0.02 K/mm3 (0.0-2.0); BASO % 0.2 % (0.0-3.0); EOS % 0.4 % (1.5-5.0); HEMOGLOBIN 9.2 g/dL (12.0-16.0); LYMPH # 1.3 (1.2-3.4); LYMPH % 13.9 % (22.0-35.0); MEAN CELL VOLUME 90.5 fl (80.0-105.0); MEAN CORPUSCULAR HEMOGLOBIN 29.1 pg (25.0-35.0); MEAN CORPUSCULAR HGB CONC 32.2 g/dl (31.0-37.0); MEAN PLATELET VOLUME 8.3 fl (7.0-11.0); MONO # 0.6 (0.1-0.6); MONO % 6.2 % (1.0-6.0); RBC 3.16 10^6/uL (3.5-6.1); RED CELL DISTRIBUTION WIDTH 13.2 % (11.5-14.5); WHITE BLOOD COUNT 9.3 10^3/uL (4.5-11.0)
[2018-05-21 08:04] LABS: ALBUMIN 2.9 g/dL (3.0-4.8); ALT/SGPT 24 U/L (7-56); AST/SGOT 19 U/L (14-36); BLOOD UREA NITROGEN 5 mg/dL (7-21); CALCIUM 7.8 mg/dL (8.4-10.5); GFR NON-AFRICAN AMERICAN > 60
[2018-05-21] MEDS ORDERED: Potassium Chloride 20 mEq ER Tab PO ONE (08:14)
[2018-05-21] MEDS ORDERED: cefTRIAXone 1 gm 1 GM/100 ML BAG IVPB SCH (10:00)
[2018-05-21 16:22] VITALS: BP 107/58; PULSE 75; RESP 20; TEMP 98.9; O2SAT 99
--- NOTE | 2018-05-21 16:56 | CP.PCM.PN ---
Subjective - Date & Time of Evaluation Date of Evaluation: 05/21/18 Time of Evaluation: 07:40 - Subjective Subjective: Surgery progress note, Dr. Aric Bravo seen and examined at bedside. She is resting comfortably in bed, tolerating her diet, +BM, no N/V. Objective - Vital Signs/Intake and Output Vital Signs (last 24 hours): Temp Pulse Resp BP Pulse Ox 98.9 F 75 20 107/58 L 99 05/21/18 14:00 05/21/18 14:00 05/21/18 14:00 05/21/18 14:00 05/21/18 14:00 Intake and Output: 05/21/18 05/21/18 06:59 18:59 Intake Total 600 Balance 600 - Medications Medications: Current Medications Acetaminophen (Tylenol 325mg Tab) 650 mg PO Q4H PRN PRN Reason: Fever >100.4 F Dextrose/Sodium Chloride (Dextrose 5%/0.45% Ns 1000 Ml) 1,000 mls @ 100 mls/hr IV .Q10H [facility] Last Admin: 05/21/18 04:57 Dose: 100 mls/hr Metronidazole (Flagyl) 500 mg in 100 mls @ 100 mls/hr IVPB Q8 [facility]; Protocol Last Admin: 05/21/18 14:01 Dose: 100 mls/hr Ceftriaxone Sodium (Rocephin 1 Gram Ivpb) 1 gm in 100 mls @ 100 mls/hr IVPB DAILY [facility]; Protocol Last Admin: 05/21/18 09:11 Dose: 100 mls/hr Ondansetron HCl (Zofran Inj) 4 mg IVP Q4H PRN PRN Reason: Nausea/Vomiting Last Admin: 05/20/18 05:17 Dose: 4 mg Oxycodone/Acetaminophen (Percocet 5/325 Mg Tab) 1 tab PO Q6H PRN PRN Reason: Pain, moderate (4-7) Stop: 05/23/18 18:01 Last Admin: 05/21/18 09:11 Dose: 1 tab Pantoprazole Sodium (Protonix Inj) 40 mg IVP DAILY [facility] Last Admin: 05/21/18 09:11 Dose: 40 mg - Labs Labs: 05/21/18 07:15 05/21/18 07:15 PT 13.5 SECONDS (9.4-12.5) H 05/19/18 20:43 INR 1.22 05/19/18 20:43 APTT 29.6 Seconds (26.9-38.3) 05/19/18 20:43 - Constitutional Appears: Well, No Acute Distress - Head Exam Head Exam: ATRAUMATIC, NORMAL INSPECTION, NORMOCEPHALIC - Eye Exam Eye Exam: EOMI, Normal appearance, PERRL Pupil Exam: NORMAL ACCOMODATION, PERRL - ENT Exam ENT Exam: Mucous Membranes Moist, Normal Exam - Respiratory Exam Respiratory Exam: Clear to Ausculation Bilateral, NORMAL BREATHING PATTERN - Cardiovascular Exam Cardiovascular Exam: REGULAR RHYTHM, +S1, +S2. absent: Murmur - GI/Abdominal Exam GI & Abdominal Exam: Soft, Normal Bowel Sounds. absent: Guarding, Rigid, Tenderness - Neurological Exam Neurological Exam: Alert, Awake - Psychiatric Exam Psychiatric exam: Normal Affect, Normal Mood Assessment and Plan - Assessment and Plan (Free Text) Assessment: 32 y/o female s/p laparoscopic appendectomy POD1 Plan: -patient is hemodynamically stable, afebrile ambulating OOB, tolerating her diet -d/c home with augmentin BID x7 days -percocet prn for pain on d/c -further recs per surgical attending Dr Arci Sinclair, DO
--- NOTE | 2018-05-21 17:54 | CP.PCM.DIS ---
<Gypsy Harrison - Last Filed: 05/21/18 17:43> Provider - Provider Date of Admission: 05/19/18 22:47 Attending physician: Lola Bustos MD Consults: 05/20/18 00:11 General Surgery Consult Stat Comment: Consulting Provider: Sreekanth Corbett Consulting Physician: Sreekanth Corbett Reason for Consult: appendicitis Time Spent in preparation of Discharge (in minutes): 45 Diagnosis - Discharge Diagnosis (1) Acute appendicitis Status: Resolved Hospital Course - Lab Results Lab Results: Micro Results 05/19/18 22:42 Urine,Clean Catch Urine Culture - Final <10,000 CFU/ML. MULTIPLE SPECIES. PROBABLE CONTAMINATION. Most Recent Lab Values WBC 9.3 10^3/uL (4.5-11.0) 05/21/18 07:15 RBC 3.16 10^6/uL (3.5-6.1) L 05/21/18 07:15 Hgb 9.2 g/dL (12.0-16.0) L 05/21/18 07:15 Hct 28.6 % (36.0-48.0) L 05/21/18 07:15 MCV 90.5 fl (80.0-105.0) 05/21/18 07:15 MCH 29.1 pg (25.0-35.0) 05/21/18 07:15 MCHC 32.2 g/dl (31.0-37.0) 05/21/18 07:15 RDW 13.2 % (11.5-14.5) 05/21/18 07:15 Plt Count 134 10^3/uL (120.0-450.0) 05/21/18 07:15 MPV 8.3 fl (7.0-11.0) 05/21/18 07:15 Neut % (Auto) 79.3 % (50.0-68.0) H 05/21/18 07:15 Lymph % (Auto) 13.9 % (22.0-35.0) L 05/21/18 07:15 [place] % (Auto) 6.2 % (1.0-6.0) H 05/21/18 07:15 Eos % (Auto) 0.4 % (1.5-5.0) L 05/21/18 07:15 Baso % (Auto) 0.2 % (0.0-3.0) 05/21/18 07:15 Lymph # (Auto) 1.3 (1.2-3.4) 05/21/18 07:15 [place] # (Auto) 0.6 (0.1-0.6) 05/21/18 07:15 Eos # (Auto) 0.0 (0.0-0.7) 05/21/18 07:15 Baso # (Auto) 0.02 K/mm3 (0.0-2.0) 05/21/18 07:15 Absolute Neuts (auto) 7.38 (1.4-6.5) H 05/21/18 07:15 PT 13.5 SECONDS (9.4-12.5) H 05/19/18 20:43 INR 1.22 05/19/18 20:43 APTT 29.6 Seconds (26.9-38.3) 05/19/18 20:43 Sodium 135 mmol/L (132-148) 05/21/18 07:15 Potassium 3.0 mmol/L (3.6-5.0) L 05/21/18 07:15 Chloride 107 mmol/L (98-107) 05/21/18 07:15 Carbon Dioxide 24 mmol/L (21-33) 05/21/18 07:15 Anion Gap 7 (10-20) L 05/21/18 07:15 BUN 5 mg/dL (7-21) L 05/21/18 07:15 Creatinine 0.5 mg/dl (0.7-1.2) L 05/21/18 07:15 Est GFR ( Amer) > 60 05/21/18 07:15 Est GFR (Non-Af Amer) > 60 05/21/18 07:15 Random Glucose 114 mg/dL (70-110) H 05/21/18 07:15 Calcium 7.8 mg/dL (8.4-10.5) L 05/21/18 07:15 Phosphorus 2.2 mg/dL (2.5-4.5) L 05/20/18 07:15 Magnesium 1.6 mg/dL (1.7-2.2) L 05/20/18 07:15 Total Bilirubin 0.3 mg/dL (0.2-1.3) 05/21/18 07:15 AST 19 U/L (14-36) 05/21/18 07:15 ALT 24 U/L (7-56) 05/21/18 07:15 Alkaline Phosphatase 40 U/L (38-126) 05/21/18 07:15 Total Protein 5.7 g/dL (5.8-8.3) L 05/21/18 07:15 Albumin 2.9 g/dL (3.0-4.8) L 05/21/18 07:15 Globulin 2.8 gm/dL 05/21/18 07:15 Albumin/Globulin Ratio 1.0 (1.1-1.8) L 05/21/18 07:15 Lipase 79 U/L (23-300) 05/19/18 20:43 Urine Color Yellow (YELLOW) 05/19/18 20:43 Urine Appearance Sl cloudy (CLEAR) 05/19/18 20:43 Urine pH 6.0 (4.7-8.0) 05/19/18 20:43 Ur Specific [place] >= 1.030 (1.005-1.035) 05/19/18 20:43 Urine Protein Negative mg/dL (<30 mg/dL) 05/19/18 20:43 Urine Glucose (UA) Negative mg/dL (NEGATIVE) 05/19/18 20:43 Urine Ketones Trace mg/dL (NEGATIVE) H 05/19/18 20:43 Urine Blood Moderate (NEGATIVE) H 05/19/18 20:43 Urine Nitrate Negative (NEGATIVE) 05/19/18 20:43 Urine Bilirubin Negative (NEGATIVE) 05/19/18 20:43 Urine Urobilinogen 0.2 E.U./dL (<1 E.U./dL) 05/19/18 20:43 Ur Leukocyte Esterase Negative Saritha/uL (NEGATIVE) 05/19/18 20:43 Urine RBC 5 - 10 /hpf (0-2) H 05/19/18 20:43 Urine WBC 5 - 10 /hpf (0-6) H 05/19/18 20:43 Ur Epithelial Cells 3 - 4 /hpf (0-5) 05/19/18 20:43 Urine Bacteria Few /hpf (NONE) 05/19/18 20:43 - Hospital Course Hospital Course: Upon Admission: 32 y o female with no remarkable PMhx who presents to the ED c/o burning epigastric and lower abd pain with associated nausea and diarrhea present since this am. States she was having gas pain, belching, and tried to induce vomiting to relieve her symptoms but was unable to. States she also had 2 episodes of loose stool, non-watery, non-bloody, earlier today prior to symptom onset. Denies hx sick contacts or recent URI/flu-like illness. States her pain was sharp, improved with changing position from sitting up to lying down, rated it 10/10 at time of presentation. States the pain started on her R side, then migrated to her epigastric area, then migrated down to the periumbilical area and mid-lower abd. Denies fever or chills. Denies constipation, diarrhea, chest pain, sob, urinary complaints, low back pain, or other symptoms. Reports last PO intake was at 7:00 pm Hospital Course: CT abd/pelvis revealed findings consistent with acute appendicitis w/ a intra mural appendicolith. Surgery team was consulted and pt was taken to OR to undergo laparoscopic appendectomy. Pt underwent surgery without complications. Pt was evaluated by PT post-operatively who recommended home PT w/ services. She was ambulating well without fever and tolerating her diet. Her pain was controlled. Upon Discharge Pt is feeling better. She has ambulated well and tolerated her diet. Vital signs stable. She refused home with services w/ home PT. She is to be discharged on oral antibiotics. She was instructed on outpatient followup, medication compliance and to return to ED if symptoms return, or new symptoms present Discharge Exam - Head Exam Head Exam: ATRAUMATIC, NORMAL INSPECTION, NORMOCEPHALIC - Eye Exam Eye Exam: EOMI, Normal appearance - ENT Exam ENT Exam: Normal Exam - Neck Exam Neck exam: Normal Inspection - Respiratory Exam Respiratory Exam: NORMAL BREATHING PATTERN, UNREMARKABLE - Cardiovascular Exam Cardiovascular Exam: REGULAR RHYTHM, +S1, +S2 - GI/Abdominal Exam GI & Abdominal Exam: Normal Bowel Sounds, Soft. absent: Guarding, Rigid Additional comments: laparoscopic port sites, c/d/i. - Extremities Exam Extremities exam: normal inspection - Back Exam Back exam: NORMAL INSPECTION - Neurological Exam Neurological exam: Alert, Oriented x3 - Psychiatric Exam Psychiatric exam: Normal Affect, Normal Mood - Skin Skin Exam: Dry, Warm Discharge Plan - Discharge Medications Prescriptions: Ciprofloxacin HCl [Cipro] 500 mg PO DAILY #5 tablet Metronidazole [Flagyl] 500 mg PO TID #15 tablet oxyCODONE/Acetaminophen [Percocet 5/325 mg Tab] 1 ea PO Q6H PRN #14 tab PRN Reason: Pain, Severe (8-10) - Follow Up Plan Condition: FAIR Disposition: HOME/ ROUTINE Instructions: Appendicitis in Adults, Appendectomy, Laparoscopic Surgery (DC) Additional Instructions: Please follow up with your primary care physician Dr. Stover within 3-5 days Please follow up with your general surgeon, Dr. Aguirre, within 3-5 days You are being discharged on Percocet for four days for your pain You are also being discharged on antibiotics, please take as prescribed If your symptoms return or you experience new symptoms, please return to the nearest emergency room Referrals: Sreekanth Corbett MD [Staff Provider] - <Lola Bustos - Last Filed: 05/22/18 14:02> Provider - Provider Date of Admission: 05/19/18 22:47 Attending physician: Lola Bustos MD Consults: 05/20/18 00:11 General Surgery Consult Stat Comment: Consulting Provider: Sreekanth Corbett Consulting Physician: Sreekanth Corbett Reason for Consult: appendicitis Hospital Course - Lab Results Lab Results: Micro Results 05/19/18 22:42 Urine,Clean Catch Urine Culture - Final <10,000 CFU/ML. MULTIPLE SPECIES. PROBABLE CONTAMINATION. Most Recent Lab Values WBC 9.3 10^3/uL (4.5-11.0) 05/21/18 07:15 RBC 3.16 10^6/uL (3.5-6.1) L 05/21/18 07:15 Hgb 9.2 g/dL (12.0-16.0) L 05/21/18 07:15 Hct 28.6 % (36.0-48.0) L 05/21/18 07:15 MCV 90.5 fl (80.0-105.0) 05/21/18 07:15 MCH 29.1 pg (25.0-35.0) 05/21/18 07:15 MCHC 32.2 g/dl (31.0-37.0) 05/21/18 07:15 RDW 13.2 % (11.5-14.5) 05/21/18 07:15 Plt Count 134 10^3/uL (120.0-450.0) 05/21/18 07:15 MPV 8.3 fl (7.0-11.0) 05/21/18 07:15 Neut % (Auto) 79.3 % (50.0-68.0) H 05/21/18 07:15 Lymph % (Auto) 13.9 % (22.0-35.0) L 05/21/18 07:15 [place] % (Auto) 6.2 % (1.0-6.0) H 05/21/18 07:15 Eos % (Auto) 0.4 % (1.5-5.0) L 05/21/18 07:15 Baso % (Auto) 0.2 % (0.0-3.0) 05/21/18 07:15 Lymph # (Auto) 1.3 (1.2-3.4) 05/21/18 07:15 [place] # (Auto) 0.6 (0.1-0.6) 05/21/18 07:15 Eos # (Auto) 0.0 (0.0-0.7) 05/21/18 07:15 Baso # (Auto) 0.02 K/mm3 (0.0-2.0) 05/21/18 07:15 Absolute Neuts (auto) 7.38 (1.4-6.5) H 05/21/18 07:15 PT 13.5 SECONDS (9.4-12.5) H 05/19/18 20:43 INR 1.22 05/19/18 20:43 APTT 29.6 Seconds (26.9-38.3) 05/19/18 20:43 Sodium 135 mmol/L (132-148) 05/21/18 07:15 Potassium 3.0 mmol/L (3.6-5.0) L 05/21/18 07:15 Chloride 107 mmol/L (98-107) 05/21/18 07:15 Carbon Dioxide 24 mmol/L (21-33) 05/21/18 07:15 Anion Gap 7 (10-20) L 05/21/18 07:15 BUN 5 mg/dL (7-21) L 05/21/18 07:15 Creatinine 0.5 mg/dl (0.7-1.2) L 05/21/18 07:15 Est GFR ( Amer) > 60 05/21/18 07:15 Est GFR (Non-Af Amer) > 60 05/21/18 07:15 Random Glucose 114 mg/dL (70-110) H 05/21/18 07:15 Calcium 7.8 mg/dL (8.4-10.5) L 05/21/18 07:15 Phosphorus 2.2 mg/dL (2.5-4.5) L 05/20/18 07:15 Magnesium 1.6 mg/dL (1.7-2.2) L 05/20/18 07:15 Total Bilirubin 0.3 mg/dL (0.2-1.3) 05/21/18 07:15 AST 19 U/L (14-36) 05/21/18 07:15 ALT 24 U/L (7-56) 05/21/18 07:15 Alkaline Phosphatase 40 U/L (38-126) 05/21/18 07:15 Total Protein 5.7 g/dL (5.8-8.3) L 05/21/18 07:15 Albumin 2.9 g/dL (3.0-4.8) L 05/21/18 07:15 Globulin 2.8 gm/dL 05/21/18 07:15 Albumin/Globulin Ratio 1.0 (1.1-1.8) L 05/21/18 07:15 Lipase 79 U/L (23-300) 05/19/18 20:43 Urine Color Yellow (YELLOW) 05/19/18 20:43 Urine Appearance Sl cloudy (CLEAR) 05/19/18 20:43 Urine pH 6.0 (4.7-8.0) 05/19/18 20:43 Ur Specific [place] >= 1.030 (1.005-1.035) 05/19/18 20:43 Urine Protein Negative mg/dL (<30 mg/dL) 05/19/18 20:43 Urine Glucose (UA) Negative mg/dL (NEGATIVE) 05/19/18 20:43 Urine Ketones Trace mg/dL (NEGATIVE) H 05/19/18 20:43 Urine Blood Moderate (NEGATIVE) H 05/19/18 20:43 Urine Nitrate Negative (NEGATIVE) 05/19/18 20:43 Urine Bilirubin Negative (NEGATIVE) 05/19/18 20:43 Urine Urobilinogen 0.2 E.U./dL (<1 E.U./dL) 05/19/18 20:43 Ur Leukocyte Esterase Negative [place]/uL (NEGATIVE) 05/19/18 20:43 Urine RBC 5 - 10 /hpf (0-2) H 05/19/18 20:43 Urine WBC 5 - 10 /hpf (0-6) H 05/19/18 20:43 Ur Epithelial Cells 3 - 4 /hpf (0-5) 05/19/18 20:43 Urine Bacteria Few /hpf (NONE) 05/19/18 20:43 Attending/Attestation - Attestation I have personally seen and examined this patient.: Yes I have fully participated in the care of the patient.: Yes I have reviewed all pertinent clinical information, including history, physical exam and plan: Yes Notes (Text): 05/22/18 13:58 Attending note; Patient seen and examined with resident. Patient is alert and awake. Status post lap appendectomy. Tolerating diet. Complaining of mild abdominal pain. Advised to ambulate as tolerated. Patient was seen by surgery and cleared for discharge. Patient will discharged home with by mouth Cipro and Flagyl as per surgery recommendation. Continue Percocet when necessary. PT evaluation appreciated. Follow-up with PMD Dr. Stover. 05/22/18 14:02
--- NOTE | 2018-05-29 23:49 | OP ---
PROCEDURE DATE: 05/20/2018 PREOPERATIVE DIAGNOSIS: Acute appendicitis. POSTOPERATIVE DIAGNOSIS: Acute appendicitis. PROCEDURE: Laparoscopic appendectomy. SURGEON: Sreekanth Corbett MD ANESTHESIA: General endotracheal. DESCRIPTION OF PROCEDURE: The patient was brought into the operating room, placed on the operating room table in the supine position. After smooth induction of general endotracheal anesthesia, Venodyne boots were placed on both legs and prophylactic antibiotics were given. The infraumbilical area was infiltrated with local anesthetic and incised in a vertical fashion using a #15 blade. The incision was brought down to subcutaneous tissue using Bovie electrocautery. The linea alba was incised and the peritoneal cavity was accessed. The Pricila trocar was inserted through the opening. The obturator was removed. The port was secured with a 0 Vicryl stay sutures and the port was connected to then CO2 tank generating pneumoperitoneum up to 15 mmHg. Two 5 mm ports were inserted in the lower abdomen after infiltrating the skin with local anesthetic and incising with #15 blade. Using an Endo grasper and a 5 mm LigaSure, the right lower quadrant was explored and the appendix was found and partly gangrenous and concealed by the surrounding cecum, omentum and terminal ileum. It was freed from its attachments to the surrounding tissues all the way to the base of the appendix. The mesoappendix was secured in a sequential fashion using the 5-mm LigaSure and then a TOM 45 blue stapler was fired across the base of the appendix, and the specimen was removed from the operating field being placed in Endo bag and removed, sent to the pathology with appropriate label for permanent sections. The abdomen was irrigated with copious amounts of warm normal saline, and there was no evidence of bleeding or succus discharge from the staple line. The infraumbilical port was removed and the fascial was closed with interrupted 0 Vicryl stitches. The integrity of the fascial closure was checked by inserting a 5 mm 30-degree laparoscopic video camera through the left lower quadrant port. There was also no evidence of bleeding or bile or omental entrapment. The remaining two 5 mm ports were removed under direct laparoscopic visualization, and there was no evidence of bleeding from the port sites. All skin incisions were closed with wayne. Sterile dressings were applied. At the end of the surgery, the counts of instruments, gauze, and needles were correct x2. The patient tolerated the surgery well and was transferred and extubated in stable condition to recovery room. Sreekanth Corbett MD MTDSonya
== END 2018-05-21 17:38 | disposition home or self-care (01) ==
LOC: ED 19:47 → ERH 22:47 → 5RNO 05-20 01:30
PROVIDERS: ADMIT Hospitalist; ATTEND Internal Medicine
DX: K35.891 Other acute appendicitis without perforation, with gangrene (principal); Z80.3 Family history of malignant neoplasm of breast; Z87.440 Personal history of urinary (tract) infections
CPT/HCPCS: 36415; 44970; 74176; 80053; 81001; 81025; 83690; 83735; 84100; 85025; 85610; 85730; 87086; 88304; 96361; 96365; 96367; 96375; 96376; 97110; 97162; 97530; 99285; C9113; G0378; G8978; G8979; J0330; J0696; J1170; J1885; J2250; J2270; J2405; J2543; J2704; J2710; J2765; J3010; J7030; J7042